=== PATIENT | male | born 1965 | race Caucasian/White ===

== ENCOUNTER 2016-07-02 07:07 | Emergency (ER) | payer BC ==
[2016-07-02 07:23] VITALS: BP 144/97
--- NOTE | 2016-07-02 07:40 | UC ---
Abdominal Pain Male HPI - HPI Summary HPI Summary: vomiting started about 5 days ago and now has resolved. diarrhea persists watery many times a day. daughter had similar illness but it resolved. he denies pain, cramping, bleeding, fever. He does not drink his well water. - History of Current Complaint Chief Complaint: UCGI Stated Complaint: VOMITING & DIARRHEA Time Seen by Provider: 07/02/16 07:25 Hx Obtained From: Patient Onset/Duration: Gradual Onset Timing: Constant Severity Initially: Moderate Severity Currently: Moderate Radiates: No Character: Not Applicable Aggravating Factor(s):: Food Associated Signs And Symptoms: Positive: Decreased Appetite, Diarrhea. Negative : Fever, Dizzy, Back Pain, Constipation, Blood in Stool, Urinary Symptoms - Allergies/Home Medications Allergies/Adverse Reactions: Allergies Allergy/AdvReac Type Severity Reaction Status Date / Time No Known Allergies Allergy Verified 07/02/16 07:16 PMH/Surg Hx/FS Hx/Imm Hx Endocrine History Of: Denies: Diabetes, Thyroid Disease Cardiovascular History Of: Reports: Hypertension Denies: Cardiac Disorders Respiratory History Of: Denies: COPD, Asthma GI/ History Of: Denies: Ulcer Neurological History Of: Denies: TIA Psychological History Of: Denies: Anxiety Cancer History Of: Denies: Lung Cancer Other History Of: Negative For: HIV - Surgical History Surgical History: Yes Surgery Procedure, Year, and Place: Left ear tube placed 2011; Left arm surgery 1993 - Family History Known Family History: Positive: None, Other - no gi related disease. - Social History Occupation: Employed Full-time Alcohol Use: Occasionally Substance Use Type: None Smoking Status (MU): Never Smoked Tobacco Have You Smoked in the Last Year: No Review of Systems All Other Systems Reviewed And Are Negative: Yes Physical Exam Triage Information Reviewed: Yes Appearance: Well-Appearing, No Pain Distress, Well-Nourished Vital Signs: Initial Vital Signs Temp 97.7 F 07/02/16 07:16 Pulse 103 07/02/16 07:16 Resp 20 07/02/16 07:16 BP 144/97 07/02/16 07:16 Pulse Ox 98 07/02/16 07:16 Vital Signs Reviewed: Yes Eyes: Positive: Conjunctiva Clear. Negative: Conjunctiva Inflamed ENT Exam: Normal Neck exam: Normal Neck: Positive: Supple, Nontender, No Lymphadenopathy Respiratory: Positive: Lungs clear, Normal breath sounds, No respiratory distress, No accessory muscle use Cardiovascular Exam: Normal Cardiovascular: Positive: RRR, No Murmur, Pulses Normal, Brisk Capillary Refill - HR in triage 103 now on my recheck it is 80. Abdomen Description: Positive: Nontender, No Organomegaly, Soft. Negative: Distended, Guarding Bowel Sounds: Positive: Present Musculoskeletal Exam: Normal Musculoskeletal: Positive: Strength Intact, ROM Intact, No Edema Neurological Exam: Normal Neurological: Positive: Alert, Muscle Tone Normal. Negative: Fatigued, Lethargic, Unresponsive Psychological Exam: Normal Skin Exam: Normal Skin: Negative: rashes Abd Pain Male Course/Dx - Differential Dx/Clinical Impression Provider Diagnoses: diarrhea Discharge - Discharge Plan Condition: Good Disposition: HOME Prescriptions: Loperamide LIQ* [Imodium LIQ*] 2 mg PO TID PRN #1 udc PRN Reason: Diarrhea Patient Education Materials: Acute Diarrhea (ED) Forms: *Work Release Referrals: Tania Arce MD [Primary Care Provider] - If Needed
== END 2016-07-02 07:43 | disposition home or self-care (01) ==
LOC: UCCORT 07:07
DX: R19.7 Diarrhea, unspecified (principal); I10 Essential (primary) hypertension
CPT/HCPCS: 99212; G0463

== ENCOUNTER 2017-02-15 08:58 | Emergency (ER) | payer BC ==
--- NOTE | 2017-02-15 09:18 | UC ---
Throat Pain/Nasal Rivera HPI - HPI Summary HPI Summary: SINUS PAIN AND PRESSURE X 2 WEEKS + COUGH , NASAL CONGESTION , PND NO FEVER, NO CHILLS, NO SOB - History of Current Complaint Chief Complaint: UCGeneralIllness Stated Complaint: COUGH Time Seen by Provider: 02/15/17 09:04 Hx Obtained From: Patient Onset/Duration: Gradual Onset, Lasting Weeks - 2, Still Present Severity: Moderate Cough: Productive Associated Signs & Symptoms: Positive: Sinus Discomfort, Nasal Discharge. Negative: Dysphagia, FB Sensation, Wheezing, Hoarseness, Fever, Vomiting, Rash - Allergies/Home Medications Allergies/Adverse Reactions: Allergies Allergy/AdvReac Type Severity Reaction Status Date / Time No Known Allergies Allergy Verified 02/15/17 09:10 PMH/Surg Hx/FS Hx/Imm Hx Cardiovascular History: Hypertension Other History Of: Negative For: HIV - Surgical History Surgical History: Yes Surgery Procedure, Year, and Place: Left ear tube placed 2011; Left arm surgery 1993 - Family History Known Family History: Positive: Hypertension, Other - no gi related disease. - Social History Alcohol Use: Occasionally Substance Use Type: None Smoking Status (MU): Never Smoked Tobacco Have You Smoked in the Last Year: No - Immunization History Most Recent Influenza Vaccination: current 2016/2017 Review of Systems Constitutional: Negative Skin: Negative Eyes: Negative ENT: Nasal Discharge, Sinus Congestion, Sinus Pain/Tenderness Respiratory: Cough Gastrointestinal: Negative Is Patient Immunocompromised?: No All Other Systems Reviewed And Are Negative: Yes Physical Exam Triage Information Reviewed: Yes Appearance: Well-Appearing, No Pain Distress, Well-Nourished Vital Signs: Initial Vital Signs Temp 98.1 F 02/15/17 09:03 Pulse 83 02/15/17 09:03 Resp 18 02/15/17 09:03 BP 150/90 02/15/17 09:03 Pulse Ox 97 02/15/17 09:03 Vital Signs Reviewed: Yes Eyes: Positive: Conjunctiva Clear ENT: Positive: Normal ENT inspection, Hearing grossly normal, Pharynx normal, Nasal congestion, Nasal drainage, TMs normal, Sinus tenderness Neck: Positive: Supple, Nontender, No Lymphadenopathy Respiratory: Positive: Chest non-tender, Lungs clear, Normal breath sounds Cardiovascular: Positive: RRR, No Murmur, Pulses Normal Skin Exam: Normal Throat Pain/Nasal Course/Dx - Differential Dx/Diagnosis Provider Diagnoses: SINUSITIS. HTN Discharge - Discharge Plan Condition: Stable Disposition: HOME Prescriptions: Amoxicillin/Clavulanate TAB* [Augmentin TAB 875*] 875 mg PO BID #20 tab Patient Education Materials: Sinusitis (ED) Referrals: Tania Arce MD [Primary Care Provider] - If Needed
[2017-02-15 09:19] VITALS: BP 150/90
== END 2017-02-15 09:23 | disposition home or self-care (01) ==
LOC: UCCORT 08:58
DX: J32.9 Chronic sinusitis, unspecified (principal); I10 Essential (primary) hypertension
CPT/HCPCS: 99212; G0463